=== PATIENT | female | born 1980 | race African-American/Black ===

== ENCOUNTER 2020-10-19 13:02 | Outpatient (CLI) | payer OTHER, SELFPAY ==
--- NOTE | ~2020-10-19 | US_ITS ---
EXAMINATION: US pelvic complete w TV DATE: 10/19/2020 13:40 INDICATION: Pelvic fullness Comparison:No prior studies for comparison. TECHNIQUE: Multiple transabdominal and endovaginal sonographic images of the pelvis performed. FINDINGS: The uterus measures 7.4 x 4.3 x 5.7 cm. The endometrial complex is somewhat heterogeneous m easuring 9 mm. There is a possible mass in the endometrium, suspicious for submucosal fibroid or poly p. There is a small uterine fibroid measuring 13 mm maximum dimension. The right ovary measures 2.2 x 1.1 x 1.3 cm and the left ovary measures 2.6 x 1.2 x 2.9 cm. There ar e small follicles in each ovary. Normal doppler signal in both ovaries. There is no free fluid in the pelvis. There are no abnormal masses seen on either side. IMPRESSION: 1. Prominent heterogeneous appearance to the endometrium with possible endometrial polyp versus submu cosal fibroid. Recommend follow-up clinical evaluation. Reviewed, dictated and finalized at location B. IMPRESSION: 1. Prominent heterogeneous appearance to the endometrium with possible endometr ial polyp versus submucosal fibroid. Recommend follow-up clinical evaluation.
== END 2020-10-19 13:03 | disposition home or self-care (01) ==
LOC: ANHIMG 13:06
PROVIDERS: Visit Provider Nurse Practitioner
DX: R19.09 Other intra-abdominal and pelvic swelling, mass and lump (principal); R93.89 Abnormal findings on diagnostic imaging of other specified body structures
CPT/HCPCS: 76830; 76856

== ENCOUNTER → 2020-11-05 01:21 | Outpatient (CLI) | payer OTHER, SELFPAY ==
[2020-11-05 19:37] LABS: SARS-CoV-2 RNA PCR Negative
== END ==
PROVIDERS: Visit Provider Obstetrics & Gynecology Gynecology
DX: Z20.822 Contact with and (suspected) exposure to COVID-19 (principal)
CPT/HCPCS: C9803; U0003; U0005

== ENCOUNTER 2020-11-08 01:48 | Day surgery (SDC) | payer OTHER, SELFPAY ==
[2020-11-01 15:48] VITALS: BMI 30.4
[2020-11-08] VITALS (8 sets, daily range): BP systolic 101–125; BP diastolic 60–69; PULSE 60–65; RESP 12–20; TEMP 36.3–36.6; O2SAT 96–100
--- NOTE | 2020-11-08 07:40 | WPDHPUPDATE1 ---
History and Physical Update Update Date/Time: 11/08/20 07:40 History and Physical has been reviewed, including an updated exam of the patient. There are NO changes in the patient's condition. Risks, benefits, and alternatives have been discussed and questions answered. Patient agrees to proceed with procedure.
--- NOTE | 2020-11-08 07:40 | PM.HPGS ---
History of Present Illness History of Present Illness Consent: Risks, benefits, and alternatives have been discussed and questions answered. Patient agrees to proceed with procedure. Chief complaint: endometrial mass Narrative: Rachel Redding is a 40 year old female with heavy cycles for approximately 3 days changing a tampon every to 1 to 2 hours. Patient's cycles are still regular. Pelvic ultrasound reveals the possible 9mm fibroid versus polyp in the endometrium. Is recommended to proceed with further evaluation with hysteroscopy and D&C. The risks of infection, bleeding, and perforation are reviewed. Possible pathology is discussed. If a fibroid is present and removed the additional risk of fluid imbalance is reviewed. Patient questions are answered. Patient agrees to proceed. The patient was recently treated for bacterial vaginosis with Flagyl as well as for mycoplasma with azithromycin. Review of Systems Review of Systems: Narrative: not repeated day of surgery; patient states no changes in status PMFSH Past Medical History Medical History (Updated 11/08/20 @ 08:34 by Karissa Lawton MD) 2001 Surgical History Surgical History (Updated 11/08/20 @ 08:31 by Karissa Lwaton MD) H/O breast biopsy Family History Family History (Updated 07/23/17 @ 10:57 by DOCTOR UNKNOWN) Other Diabetes mellitus Social History Social History Smoking packs per day: 0.5 Smoking cigarettes per day: 10.0 Years smoked: 10 Smoking pack-years: 5.00 Smoking status: Former smoker Tobacco type: cigarettes Smoking end date: 06/25/16 Alcohol intake: current Substance use: never Last use: 2016 Living arrangements: with family Gender identity (if verbalized by the patient): Female Sexual Orientation (if Verbalized by the Patient): Straight or Heterosexual Spiritual care concerns: No Meds Home Medications and Allergies Home Medications Medication Instructions Recorded Confirmed Type No Home Medications 11/01/20 11/01/20 History Allergies Allergy/AdvReac Type Severity Reaction Status Date / Time amoxicillin Allergy Rash Verified 11/08/20 08:20 Exam Const: General: healthy appearing and comfortable : External Female Exam: normal external appearance Speculum Exam - Vagina: normal appearance of the vagina and abnormal vaginal discharge (watery, frothy) Speculum Exam - Cervix: normal appearance of the cervix Bimanual exam- vagina & uterus: normal bimanual exam Bimanual Exam- Adnexa, other: normal adnexae Assessment and Plan Assessment and plan (1) Menorrhagia: Code(s): N92.0 - Excessive and frequent menstruation with regular cycle Status: Acute Assessment and Plan: Plan is to proceed with hysteroscopy D&C.
--- NOTE | 2020-11-08 09:20 | WPDANESEPPF ---
Anes - Initial Pre Proc Eval Procedure: Operation Date: 11/08/20 11:00 Proposed Procedures p Hysteroscopy Dilation and Curettage - Karissa Lawton MD Date/Time: 11/08/20 09:20 Surgeon: Karissa Lawton MD Pre Op Diagnosis: endometrial mass Patient Data Age: 40 Gender: F Height: 1.65 m Weight: 83 kg Allergies Allergy/AdvReac Type Severity Reaction Status Date / Time amoxicillin Allergy Rash Verified 11/08/20 09:30 Home Medications Medication Instructions Recorded Confirmed Type Adult Probiotic 1 caplet PO DAILY 11/08/20 11/08/20 History Patient hx anesthesia problems: none Family hx anesthesia problems: none PMFSH Past Medical History Medical History (Updated 11/08/20 @ 08:34 by Karissa Lawton MD) 2001 Surgical History Surgical History (Updated 11/08/20 @ 08:31 by Karissa Lawton MD) H/O breast biopsy Family History Family History (Updated 07/23/17 @ 10:57 by DOCTOR UNKNOWN) Other Diabetes mellitus Social History Social History Smoking packs per day: 0.5 Smoking cigarettes per day: 10.0 Years smoked: 10 Smoking pack-years: 5.00 Smoking status: Former smoker Tobacco type: cigarettes Smoking end date: 06/25/16 Alcohol intake: current Substance use: never Last use: 2016 Living arrangements: with family Gender identity (if verbalized by the patient): Female Sexual Orientation (if Verbalized by the Patient): Straight or Heterosexual Spiritual care concerns: No Anes - Eval Final PreProcedure Day of Procedure 11/08/20 09:20 Patient weight: obese Heart: regular rate and rhythm Lungs: clear to auscultation and normal air movement Airway: Mallampati scale class II Neurological: alert and oriented Last oral intake: >/= 8 hours ASA classification: II Emergent: no Anesthetic plan: proceed Anesthesia type and monitoring: general GIVS and LMA Informed Consent: The patient's anesthetic plan and its attendant risks and benefits were discussed with the patient/family/POA. Questions were solicited and answers provided to the satisfaction of the patient/family/POA.
[2020-11-08] MEDS: ACETAMINOPHEN 500 MG TABLET 1000 MG PO (09:33)
[2020-11-08] MEDS: LACTATED RINGERS 1,000 ML 30 ML IV CONT ×2 (09:43→13:30)
--- NOTE | 2020-11-08 11:55 | PM.PROC ---
Procedure Note - Detailed Date of procedure: 11/08/20 Pre-op diagnosis: endometrial mass Post-op diagnosis: same Procedure performed: D&C hysteroscopy with MyoSure resection of polyp Description of procedure: The patient was taken to the operating room and placed under anesthesia in the dorsal lithotomy position. [place] speculum was placed in the vagina and the cervix was grasped on the anterior lip with a tenaculum. Cervix is injected with 1% lidocaine in each quadrant. The uterus is sounded and noted to be 10cm. The cervix is serially dilated with Hegar is and the diagnostic hysteroscope placed this was noted to be in a false passage with no perforation noted the hysteroscope was slowly removed and very anterior in to the patient's left the true passage was visualized. The hysteroscope was removed. The dilators were reused and attempted to aim for the visualized anterior left passage. Hysteroscope was replaced and was unable to be into the true cavity. The obturator was removed and the small diameter of the hysteroscope was able to be water dilated into the proper passage. The endometrial cavity appears smooth with 1 polyp noted on the anterior left. The hysteroscope was removed the dilators are now again used to enter the proper passage and I am now able to dilate the proper canal. The uterus is sounded in this canal and noted to be 8cm. The MyoSure device and scope are placed and able to be placed into the proper cavity. Under direct visualization the polyp was excised with the MyoSure. Due to the false passage and difficulty entering the true passage, I chose to use the MyoSure to curette the endometrium in a circumferential manner to obtain background biopsy as I was unsure if the curette would enter the proper cavity. All instruments were then removed. Sponge, needle, and instrument counts are correct per the OR staff. The patient is awakened from anesthesia and taken to recovery in stable condition. Anesthesia: MAC and local Surgeon: Karissa Lawton MD Estimated blood loss (mL): 5 Drains: No Packing: No Pathology: yes (endometrial shavings) Complications: No immediate complications Condition: stable Disposition: PACU Findings: Endometrial polyp in the left fundus. Normal appearing endometrium otherwise
[2020-11-08] MEDS: MIDAZOLAM HCL (*CRX) 2 MG/2 ML VIAL 1 MG IV PUSH ×2 (12:15→12:20)
[2020-11-08] MEDS: fentaNYL CITRATE INJ (*CRX) 100 MCG/2 ML VIAL 25 MCG IV PUSH ×2 (12:18→12:20)
[2020-11-08] MEDS: oxyCODONE HCL (*CRX) 5 MG TAB IR PO (13:09)
[2020-11-08] MEDS: KETOROLAC 30 MG/ML VIAL (*BKC) IV PUSH (13:58)
--- NOTE | 2020-11-08 14:04 | SUR.PHASEII ---
1400 - dr. love called and updated on pt's status. order received
== END 2020-11-08 14:57 | disposition home or self-care (01) ==
PROVIDERS: Visit Provider Obstetrics & Gynecology Gynecology
PROC: 0U5B8ZZ Destruction of Endometrium, Via Natural or Artificial Opening Endoscopic (ICD-10-PCS; CPT 58563; principal; 2020-11-08 11:00)
DX: N84.0 Polyp of corpus uteri (principal); N92.0 Excessive and frequent menstruation with regular cycle; Z87.891 Personal history of nicotine dependence
CPT/HCPCS: 58558; 88305; A9270; J1885; J2250; J2704; J3010; J7030; J7120

== ENCOUNTER 2022-08-23 15:03 | Outpatient (CLI) | payer OTHER, SELFPAY ==
--- NOTE | ~2022-08-23 | US_ITS ---
EXAMINATION: US OB <=14 wk fetus w TV DATE: 08/23/2022 16:00 INDICATION: Spotting during first trimester TECHNIQUE: Real-time pelvic transabdominal and transvaginal ultrasound was performed. COMPARISON: None. FINDINGS: The uterus measures 9.9 x 6.7 x 6.9 cm. A 1.1 cm hypoechoic area of the uterine fundus has the appearance of an intramural fibroid. There is an intrauterine gestational sac. A yolk sac is iden tified. heart motion is identified measuring 115 beats per minute (bpm) by M-mode Doppler. The crown rump length measures 5 mm, which correlates with an estimated gestational age of 6 weeks and 1 day(s) (+/-) 4 day(s). The left ovary is not visualized however no left adnexal abnormality is seen. The right ovary measure s 2.7 x 1.9 x 1.9 cm and contains a cyst or corpus luteum. There is normal vascular flow in the right ovary. There is no free fluid in the pelvis. IMPRESSION: 1. Live intrauterine with an estimated gestational age of 6 weeks and 1 day(s) (+/-) 4 day( s) and an estimated delivery date of 04/17/2023. Reviewed, dictated and finalized at location F. TS COORDINATOR IMPRESSION: 1. Live intrauterine with an estimated gestational age of 6 weeks and 1 day(s) (+/-) 4 day(s) and an estimated delivery date of 04/17/2023.
== END 2022-08-23 15:04 | disposition home or self-care (01) ==
LOC: ANHIMG 15:14
PROVIDERS: PCP Nurse Practitioner Family; Visit Provider Obstetrics & Gynecology Gynecology
DX: O26.851 Spotting complicating pregnancy, first trimester (principal); Z3A.01 Less than 8 weeks gestation of pregnancy
CPT/HCPCS: 76801; 76817